=== PATIENT | female | born 1945 | race Caucasian/White ===

== ENCOUNTER 2025-03-07 14:08 | Outpatient (AMB) | payer MEDICARE, MEDICAID, SELFPAY ==
--- NOTE | 2025-03-07 14:17 | A.OFFVIS_ITS ---
Intake Visit Reasons: 6m pd Accompanied by: Daughter Allergies venlafaxine (From Effexor) Allergy (Unknown, Verified 03/07/25 14:17) Unknown Medication List - Last Reconciled 03/07/25 by Palmira Watkins CNP cholecalciferol (vitamin D3) 25 mcg PO DAILY divalproex mg PO levothyroxine 25 mcg PO DAILY melatonin 1 mg PO BEDTIME multivitamin with folic acid 400 mcg (Tab-A-Te) 1 tab PO DAILY sertraline 100 mg PO DAILY vitamin E (dl, acetate) mg PO DAILY HPI Comments Details: She was doing okay. Tremors are stable, worse when nervous or anxious. No functional impairment. No difficulty eating, drinking, or swallowing. Mobility was okay. Walking with walker, no falls. No trouble getting up from chair or turning in bed. Memory was stable. Sleep was so-so, sometimes disrupted by her roommate. Mood was okay. Enjoys doing activity books.? In the past, would get hyper focused and upset. Restless and pace at times. Limited participation in group activities. Living in assisted living per recommendations of psychiatrist. Does not feel depressed and not getting agitated and her behavior is inappropriate. Using a walker since last fall in end of December 2021. No significant tremor. She has an anxiety disorder and bipolar disorder. Worse on nights and weekends. Some judgment errors. [facility] Medical History (Updated 03/07/25 @ 14:20 by Palmira Watkins CNP) Hypothyroidism Diverticulosis Bipolar disorder Family History (Updated 03/07/25 @ 14:19 by Palmira Watkins CNP) Mother Dementia Maternal Grandmother Stroke Review of Systems Const Denies chills, Denies daytime sleepiness, Denies difficulty sleeping, Denies fatigue, Denies fever(s), Denies frequent falls, Denies headache(s), Denies increased appetite, Denies poor appetite, Denies snoring, Denies weakness, Denies weight gain and Denies weight loss Eyes Denies loss of vision ENT Denies vertigo, Denies dizziness, Denies headache(s) and Denies neck pain Card Denies chest pain at rest, Denies chest pain with activity, Denies syncope, Denies leg edema, Denies palpitations, Denies dyspnea and Denies dyspnea on exertion Resp Denies cough, Denies dyspnea, Denies dyspnea on exertion and Denies snoring GI Denies abdominal pain, Denies constipation, Denies heartburn, Denies diarrhea and Denies nausea Denies urinary frequency, Denies urinary incontinence and Denies urinary urgency Musc Denies abnormal gait, Denies back pain, Denies myalgias, Denies arthralgias, Denies neck pain, Denies numbness and Denies tingling Neuro Denies abnormal gait, Denies vertigo, Denies dizziness, Denies syncope, Denies frequent falls, Denies headache(s), Denies lack of coordination, Denies loss of vision, Reports memory loss, Denies numbness, Denies Other visual disturbances, Denies restless legs, Denies seizure-like activity, Denies tingling, Denies paresthesias, Reports tremor(s) and Denies weakness Psych Denies anxiety, Denies depression, Denies auditory hallucinations, Reports memory loss and Denies visual hallucinations Endo Denies fatigue and Denies palpitations Physical Exam Const Other: General Appearance:? normal, in no acute distress. Heart:? S1, S2 normal, no murmurs. Lungs:? clear anteriorly and posteriorly. Musculoskeletal:? normal. Extremities:? no edema. Psych:? alert, as below. Neuro Other: Abnormal Neurological Findings:?Mild resting tremor of BUE, R > L. Mild - moderate resting tremor of RLE.?Very mild cogwheeling rigidity. Walking with walker, short stepped gait. Bradykinesia. Slightly reduced facial expressions and reduced blinking frequency. MMSE 28/30 Mental Status: alert, as below. Cranial Nerves: Pupils are equal, round, and reactive to light. External ocular muscles are intact. Visual cantu are full, no ptosis. Face is symmetrical, no facial weakness or droop. Facial sensations are normal. Tongue protrudes in midline. Palate elevates symmetrically. Shoulder shrugging is normal Motor Examination: Normal muscle tone, bulk and strength. No atrophy or fas ciculations. No drift of the extended upper extremities. DTR 2+. Plantars are flexor. Sensory Exam: Normal light touch, temperature, pinprick, vibration, and joint- position sensations. Rhomberg sign is absent. Coordination: No ataxia. No titubation. Gait Exam: As above. Cerebellar Signs: [id number] is okay. Extrapyramidal System: As above. Speech: Normal. MMSE Level of Consciousness: Alert. Orientation: Knows correct year, month, date, day and season. Knows correct city, county and state. Knows correct location and floor. Registration: Able to register 3 objects. Attention: Serial 7's performed accurately to 79. Recall: Able to recall 3 out of 3 objects. Language: Normal spontaneous speech, fluency, repetition, naming, comprehension, reading, and writing. Total Score: 28/30. Results Reviewed Results Reviewed: 11/12/14 EEG: The waking EEG is within normal limits. Diffuse high voltage beta. 11/06/14 CT brain: ok Assessment & Plan Assessment & Plan (1) MCI (mild cognitive impairment): Code(s): G31.84 - Mild cognitive impairment of uncertain or unknown etiology Category: Medical Plan: She was still not interested in starting medications at this time. Stay physically and socially active, use walker. (2) Tremor: Code(s): R25.1 - Tremor, unspecified Category: Medical Plan: She was not significantly bothered by tremor and there was no functional impairment. She was still not interested in starting medications at this time. (3) Parkinsonism: Code(s): G20.C - Parkinsonism, unspecified Category: Medical Qualifiers: Parkinsonism type: unspecified Qualified Code(s): G20.C - Parkinsonism, unspecified (4) Parkinsonian features: Code(s): R29.818 - Other symptoms and signs involving the nervous system Category: Medical Plan Follow up in 1 year or sooner as needed. Coding Level of Care Code Est Pt Level 3 (78660) Diagnoses MCI (mild cognitive impairment) G31.84 Tremor R25.1 Parkinsonism, unspecified Parkinsonism type G20.C Parkinsonism type: unspecified Parkinsonian features R29.818
--- OUTSIDE RECORDS SUMMARY | 2025-03-07 18:35 | XMS_ITS ---
[facility] Care Team Organization Name Specialty Phone Email Start Date End Da te [facility] 01/30/2025 [facility] 04/20/2022 01/30/2024
== END 2025-03-07 14:35 | disposition home or self-care (01) ==
LOC: HO.HSM 14:08
PROVIDERS: PCP Internal Medicine; Referring Provider Internal Medicine; Visit Provider Registered Nurse
DX: G31.84 Mild cognitive impairment of uncertain or unknown etiology (principal); R25.1 Tremor, unspecified; G20.C Parkinsonism, unspecified; R29.818 Other symptoms and signs involving the nervous system
CPT/HCPCS: 99213

== ENCOUNTER → 2025-03-07 14:08 | Outpatient (BNVA) | payer MEDICARE, MEDICAID, SELFPAY | PROVIDERS: PCP Internal Medicine; Referring Provider Internal Medicine; Visit Provider Registered Nurse | DX: G31.84 Mild cognitive impairment of uncertain or unknown etiology (principal); R29.818 Other symptoms and signs involving the nervous system; G20.C Parkinsonism, unspecified | CPT/HCPCS: 99212 ==